=== PATIENT | male | born 1955 | race Caucasian/White ===

== ENCOUNTER 2020-04-11 09:17 | Outpatient (CLI) | payer BC ==
[2020-04-11 14:35] LABS: BASOPHILS % (AUTO) 0.4 %; EOSINOPHILS # (AUTO) 0.1 10^3/uL (0.0-0.7); EOSINOPHILS % (AUTO) 1.1 %; HGB - HEMOGLOBIN 14.6 g/dL (14.0-18.0); LYMPHOCYTES # (AUTO) 2.1 10^3/uL (1.5-3.5); LYMPHOCYTES % (AUTO) 37.5 %; MEAN CORPUSCULAR HEMOGLOBIN 31.9 pg (27.0-31.0); MEAN CORPUSCULAR HGB CONC 33.4 g/dL (32.0-36.0); MEAN CORPUSCULAR VOLUME 95.6 fL (80.0-94.0); MEAN PLATELET VOLUME 9.8 fL (7.4-11.4); MONOCYTES # (AUTO) 0.4 10^3/uL (0.0-1.0); MONOCYTES % (AUTO) 7.4 %; NEUTROPHILS % (AUTO) 53.2 %; PLT - PLATELET COUNT 268 10^3/uL (130-450); RED BLOOD COUNT 4.57 10^6/uL (4.70-6.10); RED CELL DISTRIBUTION WIDTH 12.6 % (12.0-15.0); WHITE BLOOD COUNT 5.7 x10^3/uL (4.8-10.8)
[2020-04-11 14:55] LABS: ALBUMIN 4.2 g/dL (3.2-5.5); ALBUMIN/GLOBULIN RATIO 1.4 (1.0-2.2); ALKALINE PHOSPHATASE 43 IU/L (42-121); ALT ALANINE AMINOTRANSFERASE 13 IU/L (10-60); AST ASPARTATE AMINOTRANSFERASE 16 IU/L (10-42); BUN - BLOOD UREA NITROGEN 16 mg/dL (6-20); CALCIUM 9.1 mg/dL (8.5-10.3); CARBON DIOXIDE - CO2 26 mmol/L (21-32); CHLORIDE 106 mmol/L (101-111); CHOL/HDL RATIO 5.8 (<5.0); CHOLESTEROL 222 mg/dL; CREATININE 0.9 mg/dL (0.6-1.2); GLUCOSE 104 mg/dL (70-100); HDL CHOLESTEROL 38 mg/dL; LDL CHOLESTEROL,CALCULATED 147 mg/dL; LDL/HDL RATIO 3.9 (<3.6); SODIUM 142 mmol/L (135-145); TOTAL PROTEIN 7.2 g/dL (6.7-8.2); VLDL CHOLESTEROL 37 mg/dL
== END 2020-04-11 09:18 | disposition home or self-care (01) ==
LOC: LAB.S 09:17
PROVIDERS: ATTEND Registered Nurse
DX: Z71.89 Other specified counseling (principal); K21.9 Gastro-esophageal reflux disease without esophagitis; I10 Essential (primary) hypertension
CPT/HCPCS: 36415; 80053; 80061; 83721; 84153; 84443; 85025

== ENCOUNTER 2022-03-04 07:03 | Outpatient (CLI) | payer MEDICARE ==
--- NOTE | 2022-03-04 16:16 | Ultrasound Report ---
PROCEDURE: Carotid Doppler Complete INDICATIONS: RETINAL ARTERY BRANCH OCCLUSION TECHNIQUE: Color and pulse Doppler interrogation was performed of both carotid systems, with image documentation and velocity measurements. COMPARISON: None. FINDINGS: Right side: Brachial blood pressure: 145/76 mm Hg. Common carotid artery peak systolic velocity: 83 cm/sec. Internal carotid artery peak systolic velocity: 77 cm/sec. Internal carotid artery end diastolic velocity: 23 cm/sec. External carotid artery peak systolic velocity: 98 cm/sec. ICA/CCA peak systolic ratio: 0.9 . Connor scale imaging description: Mild plaque at the bifurcation Percent internal carotid artery stenosis: Less than 50% . Vertebral artery: Flow direction is antegrade. Left side: Brachial blood pressure: 139/77 mm Hg. Common carotid artery peak systolic velocity: 78 cm/sec. Internal carotid artery peak systolic velocity: 74 cm/sec. Internal carotid artery end diastolic velocity: 30 cm/sec. External carotid artery peak systolic velocity: 67 cm/sec. ICA/CCA peak systolic ratio: 1.0 . Connor scale imaging description: Mild to moderate plaque at the bifurcation Percent internal carotid artery stenosis: Less than 50% . Vertebral artery: Flow direction is antegrade. IMPRESSION: Less than 50% stenosis of the internal carotid arteries bilaterally. The estimate of stenosis included in the report of the imaging study was calculated using the NASCET method Reviewed by: Michelle Nath MD on 03/04/2022 4:15 PM PDT Approved by: Michelle Nath MD on 03/04/2022 4:15 PM PDT Station ID: [id number]
== END 2022-03-04 07:04 | disposition home or self-care (01) ==
LOC: DI 07:03
PROVIDERS: ATTEND Internal Medicine
DX: I65.23 Occlusion and stenosis of bilateral carotid arteries (principal); I51.9 Heart disease, unspecified; H34.231 Retinal artery branch occlusion, right eye; I51.7 Cardiomegaly
CPT/HCPCS: 93306; 93880

== ENCOUNTER → 2022-04-07 | Outpatient (CLI) | payer MEDICARE | LOC: MAC.MOP 10:30 | PROVIDERS: ATTEND Internal Medicine | DX: H34.231 Retinal artery branch occlusion, right eye (principal); I48.91 Unspecified atrial fibrillation; I49.1 Atrial premature depolarization; I49.3 Ventricular premature depolarization | CPT/HCPCS: 93248 ==

== ENCOUNTER 2022-10-23 10:59 | Outpatient (CLI) | payer MEDICARE ==
--- NOTE | 2022-10-23 18:30 | XRAY Report ---
PROCEDURE: Hips 2V BILAT INDICATIONS: LEFT HIP PAIN TECHNIQUE: 2 views of both hips were acquired. COMPARISON: None. FINDINGS: Bones: On the right, there is a total hip prosthesis in good position. No evidence of fracture or fa ilure. Pelvic ring is intact. On the left, there is a distended joint space narrowing with marginal o steophytes. Femoral head has an appropriate contour. Soft tissues: No suspicious soft tissue calcifications or masses. IMPRESSION: Moderate left hip osteoarthritis Total right hip arthroplasty in good position Reviewed by: Campbell Reyes MD on 10/23/2022 5:29 PM AKJEFFERY Approved by: Campbell Reyes MD on 10/23/2022 5:29 PM AKJEFFERY Station ID: [id number]
== END 2022-10-23 11:00 | disposition home or self-care (01) ==
LOC: DI.S 10:59
PROVIDERS: ATTEND Registered Nurse
DX: M16.12 Unilateral primary osteoarthritis, left hip (principal); Z96.641 Presence of right artificial hip joint

== ENCOUNTER 2022-11-06 08:00 | Outpatient (CLI) | payer MEDICARE ==
--- NOTE | 2022-11-06 14:12 | XRAY Report ---
PROCEDURE: Knee 4 View LT INDICATIONS: LEFT KNEE PAIN TECHNIQUE: 4 views of the left knee and one view of the right knee were acquired. COMPARISON: None. FINDINGS: Bones: No acute fractures or dislocations. No suspicious bony lesions. Severe narrowing of the le ft medial femorotibial compartment joint space is seen with subchondral sclerosis and marginal osteop hyte formation. Mild narrowing of the lateral and anterior compartment joint spaces is seen with smal l marginal osteophytes. Included right knee demonstrates moderate to severe joint space narrowing at the medial femorotibial compartment. Soft tissues: No knee joint effusion. No suspicious soft tissue calcifications or masses. IMPRESSION: Tricompartmental left knee osteoarthrosis is most notable and severe at the medial femorotibial amee rtment. Reviewed by: Sharan Calle MD on 11/06/2022 2:10 PM PDT Approved by: Sharan Calle MD on 11/06/2022 2:10 PM PDT Station ID: [id number]
== END 2022-11-06 23:59 | disposition home or self-care (01) ==
LOC: DI.WOS 08:00
PROVIDERS: ATTEND Orthopaedic Surgery
DX: M17.11 Unilateral primary osteoarthritis, right knee (principal)

== ENCOUNTER 2022-12-02 08:42 | Outpatient (CLI) | payer MEDICARE ==
[2022-12-02 15:10] LABS: BASOPHILS % (AUTO) 0.3 %; EOSINOPHILS # (AUTO) 0.2 10^3/uL (0.0-0.7); EOSINOPHILS % (AUTO) 2.5 %; HGB - HEMOGLOBIN 13.8 g/dL (14.0-18.0); LYMPHOCYTES # (AUTO) 2.4 10^3/uL (1.5-3.5); LYMPHOCYTES % (AUTO) 35.7 %; MEAN CORPUSCULAR HEMOGLOBIN 31.4 pg (27.0-31.0); MEAN CORPUSCULAR HGB CONC 32.9 g/dL (32.0-36.0); MEAN CORPUSCULAR VOLUME 95.5 fL (80.0-94.0); MEAN PLATELET VOLUME 10.4 fL (7.4-11.4); MONOCYTES # (AUTO) 0.5 10^3/uL (0.0-1.0); NEUTROPHILS # (AUTO) 3.6 10^3/uL (1.5-6.6); NEUTROPHILS % (AUTO) 53.2 %; PLT - PLATELET COUNT 250 10^3/uL (130-450); RED CELL DISTRIBUTION WIDTH 12.4 % (12.0-15.0); WHITE BLOOD COUNT 6.8 x10^3/uL (4.8-10.8)
[2022-12-02 15:33] LABS: ALBUMIN 3.9 g/dL (3.2-5.5); ALBUMIN/GLOBULIN RATIO 1.4 (1.0-2.2); ALKALINE PHOSPHATASE 37 IU/L (42-121); ALT ALANINE AMINOTRANSFERASE 18 IU/L (10-60); AST ASPARTATE AMINOTRANSFERASE 19 IU/L (10-42); BILIRUBIN,TOTAL 0.8 mg/dL (0.2-1.0); BUN - BLOOD UREA NITROGEN 17 mg/dL (6-20); CALCIUM 8.7 mg/dL (8.5-10.3); CARBON DIOXIDE - CO2 27 mmol/L (21-32); CHLORIDE 109 mmol/L (101-111); CHOL/HDL RATIO 3.4 (<5.0); CHOLESTEROL 124 mg/dL; CREATININE 0.9 mg/dL (0.6-1.2); GFR - MDRD 84 (>89); GLUCOSE 105 mg/dL (70-100); HDL CHOLESTEROL 37 mg/dL; LDL CHOLESTEROL,CALCULATED 61 mg/dL; LDL/HDL RATIO 1.6 (<3.6); SODIUM 141 mmol/L (135-145); TOTAL PROTEIN 6.6 g/dL (6.7-8.2); TRIGLYCERIDES 131 mg/dL; VLDL CHOLESTEROL 26 mg/dL
== END 2022-12-02 08:43 | disposition home or self-care (01) ==
LOC: LAB.S 08:42
PROVIDERS: ATTEND Registered Nurse
DX: E78.5 Hyperlipidemia, unspecified (principal); Z79.899 Other long term (current) drug therapy; Z12.5 Encounter for screening for malignant neoplasm of prostate
CPT/HCPCS: 36415; 80053; 80061; 85025; G0103; 83721; 84153

== ENCOUNTER 2022-12-31 06:24 | Day surgery (SDC) | payer MEDICARE ==
[~2022-12-31 06:24] MED LIST: ACETAMINOPHEN 500 MG TABLET PO ONE; CELECOXIB 100 MG CAPSULE PO ONE; ceFAZolin 2 GM VIAL ONE
--- NOTE | 2022-12-31 06:40 | ANESTHESIA ---
Pre-Anesthesia VS, & Labs - Diagnosis L hip OA - Procedure L LILO Height: 6 ft Weight (kg): 106 kg Body Mass Index: 31.6 BMI Classification: Obese - NPO >8 hours - Lab Results Lab results reviewed: Yes Home Medications and Allergies Home Medications: Ambulatory Orders Aspirin [Aspirin EC] 81 mg PO DAILY 12/22/22 Atorvastatin Calcium [Lipitor] 80 mg PO QPM 12/22/22 Metoprolol Succinate [Toprol Xl] 50 mg PO DAILY 12/22/22 Pantoprazole [Protonix] 40 mg PO DAILY 12/22/22 Aspirin [Aspirin EC] 81 mg PO DAILY 12/22/22 Atorvastatin Calcium [Lipitor] 80 mg PO QPM 12/22/22 Metoprolol Succinate [Toprol Xl] 50 mg PO DAILY 12/22/22 Pantoprazole [Protonix] 40 mg PO DAILY 12/22/22 Allergies/Adverse Reactions: Allergies Allergy/AdvReac Type Severity Reaction Status Date / Time No Known Drug Allergies Allergy Verified 12/22/22 13:02 Anes History & Medical History - Anesthetic History Anesthesia Complications: reports: No previous complications Family history of Anesthesia Complications: Denies Family history of Malignant Hyperthermia: Denies - Medical History Cardiovascular: reports: Hypertension, High cholesterol Pulmonary: reports: None Gastrointestinal: reports: GERD Urinary: reports: None Musculoskeletal: reports: Osteoarthritis Endocrine/Autoimmune: reports: None Skin: reports: None History of Cancer?: No - Surgical History Orthopedic: reports: Hip replacement, Other Exam General: Alert, Oriented x3, Cooperative Dental: WNL Mouth Openin Fingerbreadth Neck Mobility: Normal Mallampati classification: II Thyromental Distance: 4-6 cm Respiratory: Lungs clear, Normal breath sounds, No respiratory distress Cardiovascular: Regular rate Neurological: Normal speech Mental/Cognitive Status: Alert/Oriented X3, Normal for patient Cognitive Status: Within normal limits Plan Anesthesia Type: Spinal Consent for Procedure(s) Verified and Reviewed: Yes Code Status: Attempt Resuscitation ASA classification: 2-Mild systemic disease Is this case an emergency?: No
[2022-12-31] MEDS ORDERED: LACTATED RINGERS 1,000 ML IV ONE ×2 (06:52→12:08)
[2022-12-31] MEDS ORDERED: PROPOFOL 500 MG/50 ML 500 MG/50 ML VIAL ONE ×2 (07:03→08:50)
[2022-12-31] MEDS ORDERED: MIDAZOLAM 2 MG/2 ML VIAL ONE (07:07)
[2022-12-31] MEDS ORDERED: fentaNYL 100 MCG/2 ML VIAL ONE ×3 (07:07→11:53)
[2022-12-31] MEDS ORDERED: BUPIVACAINE 0.5% PF 10 ML VIAL ONE (07:08)
[2022-12-31] MEDS ORDERED: VANCOMYCIN 1 GM VIAL ONE (07:18)
[2022-12-31] MEDS ORDERED: BUPIVACAINE 0.25% PF 30 ML VIAL ONE (07:18)
[2022-12-31] MEDS ORDERED: MORPHINE 2 MG/ML CARPUJECT IVP PRN (07:20)
[2022-12-31] MEDS ORDERED: ePHEDrine 50 MG/ML VIAL IVP PRN (07:20)
[2022-12-31] MEDS ORDERED: ATROPINE ABBOJECT 1 MG/10 ML SYRINGE IVP PRN (07:20)
[2022-12-31] MEDS ORDERED: ONDANSETRON 4 MG/2 ML VIAL IVP PRN ×2 (07:20→11:27)
[2022-12-31] MEDS ORDERED: NALOXONE 0.4 MG/ML VIAL IVP PRN (07:20)
[2022-12-31] MEDS ORDERED: fentaNYL 100 MCG/2 ML VIAL IVP PRN (07:20)
[2022-12-31] MEDS ORDERED: METOCLOPRAMIDE 10 MG/2 ML VIAL IVP PRN (07:20)
[2022-12-31] MEDS ORDERED: HYDROmorphone 0.5 MG/0.5 ML SYRINGE IVP PRN (07:20)
[2022-12-31] MEDS ORDERED: LACTATED RINGERS 1,000 ML IV SCH (08:00)
[2022-12-31] MEDS ORDERED: TRANEXAMIC ACID 1,000 MG/10 ML VIAL ONE ×2 (08:02→09:35)
[2022-12-31] MEDS ORDERED: DEXAMETHASONE 10 MG/ML VIAL ONE (08:02)
[2022-12-31] MEDS ORDERED: PROPOFOL 200 MG/20 ML VIAL IVP ONE ×4 (08:14→10:29)
[2022-12-31] MEDS ORDERED: VANCOMYCIN 1 GM VIAL MC ONE (10:31)
[2022-12-31] MEDS ORDERED: BUPIVACAINE 0.25% PF 30 ML VIAL SUBQ ONE (10:59)
--- NOTE | 2022-12-31 11:08 | OPERATIVE REPORT ---
Operative Report - General Procedure Date: 12/31/22 Planned Procedure: Left total hip arthroplasty Pre-Op Diagnosis: Osteoarthritis left hip, history of osteoarthritis of the right hip Procedure Performed: Left total hip arthroplasty: [employer] #6 anthology femoral component, 58 mm R3 acetabular press-fit cup,35 mm acetabular screw neutral polyethylene acetabular liner, 36 mm Oxinium +0 femoral head Post Op Diagnosis: Osteoarthritis left hip - Procedure Note Primary Surgeon: Hiram Munoz MD Secondary Surgeon: Ashely HA Anesthesia Provider: Mahesh Kenyon CRNA Anesthesia Technique: Spinal Estimated Blood Loss (mL): 250 Indications: This is a 67-year-old gentleman with a history of bilateral hip osteoarthritis. He has had a previous right total hip replacement in about 2017 with favorable outcome. He has had progressive pain especially over the past year to the left hip. He had limited and painful motion to the left hip. His x-rays showed marked narrowing of the hip joint, subchondral sclerosis and osteophyte consistent with osteoarthritis of the left hip. Findings: There was articular cartilage loss that was nearly complete on both sides of the joint especially in the weightbearing dome where there is some eburnation of bone. Complications: None - Other Other Information/Narrative: After satisfactory spinal anesthesia had been achieved, the patient was placed in a lateral decubitus position with the left hip facing superiorly. He was secured in the lateral decubitus position using a pegboard with 2 post securing the torso and 2 posts securing the pelvis. The left hip and right lower extremity were prepped and draped in a sterile manner in the usual fashion. A timeout procedure was performed by the entire operating room team and all were in agreement. A longitudinal incision was made about the lateral right hip beginning at the vastus lateralis ridge of the proximal femur and extending it proximally approximately 3 fingerbreadths above the trochanter. The subcutaneous tissue and fascia domenic were split in line with the incision. The anterior one third of the gluteus medius was incised at the myotendinous junction. The gluteus medius was retracted medially. The hip capsule was exposed and was split in a T-shaped fashion. Part of the anterior hip capsule was excised. The femoral head was dislocated with flexion, adduction and external rotation. An osteotomy was done to the femoral neck using a osteotomy guide. Retractors were placed behind the femoral neck to protect the soft tissues from the oscillating saw. The proximal femur was retracted. 2 acetabular retractors were placed one anteriorly directly against bone to reduce any soft tissue impingement to femoral nerve. The second retractor was placed more posteriorly directly against bone and preventing any impingement against sciatic nerve. The acetabulum was prepared with a large curette. Medialization of the acetabulum was performed with a small acetabular reamer and then widening was done up to a 57 mm reamer the final reamers were placed in approximately 20 degrees anteversion and 40 degrees of abduction. A trial acetabular component was inserted, 53 mm and this fit well. A permanent 54 mm R3 acetabular 3-hole component was then impacted in 40 degrees of abduction and approximately 20 degrees of anteversion. This had good fixation to push pull and rotation. A single 35 mm superior acetabular screw was inserted. The stability of the acetabular cup was very good. A trial acetabular liner was inserted into the cup. The femoral canal was opened with a box osteotome, starting reamer and then a short broach. Broaching was carried out to a #6. Calcar reaming was performed. Good fit and stability to the #6 stem was achieved. Trial reduction was performed. Hip motion was very good and the hip was stable to dislocation maneuvers. The trial components were removed. A permanent acetabular liner was impacted into the acetabular cup. The #6 femoral stem was impacted and fully seated. There was good stability to push pull and rotation. A 36 mm +0 head was impacted on the trunnion. The hip was reduced, had good leg length tension and good stability with dislocation maneuvers. 3-minute lavage with dilute Betadine was performed. The hip abductors were repaired at the myotendinous junction with #1 stratofix. The fascia domenic was closed with #1 Stratofix. The subcutaneous tissue was closed with 2-0 stratofix. The skin was closed with a 3-0 Monocryl subcuticular closure and Dermabond. He tolerated the procedure well. A physician licensed physical therapist assistant was utilized during the procedure to provide retraction and protection of neurovascular structures as well as to facilitate dislocation and reduction of the hip joint.The patient received 2 g of Ancef intravenously prior to the incision and a total of 2 g of tranexamic acid
[2022-12-31] MEDS ORDERED: DOCUSATE SODIUM 100 MG CAPSULE PO PRN (11:27)
[2022-12-31] MEDS ORDERED: fentaNYL 250 MCG/5 ML VIAL IVP PRN (11:27)
[2022-12-31] MEDS ORDERED: SODIUM CHLORIDE FLUSH 0.9% 10 ML SYRINGE IVP PRN (11:27)
[2022-12-31] MEDS ORDERED: traMADol 50 MG TABLET PO PRN (11:27)
[2022-12-31] MEDS ORDERED: oxyCODONE 5 MG TABLET PO PRN (11:27)
[2022-12-31] MEDS ORDERED: LACTATED RINGERS 300 ML IV ONE (11:31)
[2022-12-31] MEDS ORDERED: HYDROmorphone 0.5 MG/0.5 ML SYRINGE ONE (11:44)
[2022-12-31] MEDS ORDERED: fentaNYL 100 MCG/2 ML VIAL IVP ONE (11:50)
[2022-12-31] MEDS ORDERED: METOCLOPRAMIDE 10 MG/2 ML VIAL ONE (11:54)
[2022-12-31] MEDS ORDERED: NS W/20 MEQ KCL 1,000 ML IV SCH (12:00)
[2022-12-31] MEDS ORDERED: ceFAZolin 2 GM in SODIUM CHLORIDE 0.9% MINIBAG 100 ML IV SCH ×2 (12:00→16:30)
--- NOTE | 2022-12-31 12:31 | ANESTHESIA POST OP EVALUATION ---
Anesthesia Post Eval - Post Anesthesia Eval Vitals: Last Vital Signs Temp 36.0 C L 12/31/22 12:06 Pulse 71 12/31/22 12:06 Resp 16 12/31/22 12:06 BP 110/68 12/31/22 12:06 Pulse Ox 97 12/31/22 12:06 O2 Flow Rate CV Function Including HR & BP: Stable Pain Control: Satisfactory Nausea & Vomiting: Negative Mental Status: Baseline Respiratory Status: Airway Patent Hydration Status: Satisfactory Anesthesia Complications: None
[2022-12-31] MEDS: ACETAMINOPHEN 500 MG TABLET PO SCH ×2 (13:07→18:32)
[2022-12-31] MEDS: traMADol 50 MG TABLET PO SCH ×2 (13:07→18:32)
[2022-12-31] MEDS ORDERED: SODIUM CHLORIDE FLUSH 0.9% 10 ML SYRINGE IVP SCH (17:00)
[2022-12-31 18:39] VITALS: BP 134/81
--- NOTE | 2022-12-31 20:10 | XRAY Report ---
PROCEDURE: Pelvis 1 View INDICATIONS: post op imaging TECHNIQUE: 2 view(s) of the pelvis acquired. COMPARISON: 10/23/2022. FINDINGS: Bones: Patient is status post left total hip arthroplasty. Alignment of left hip is anatomic. No frac tures or dislocations. No suspicious bony lesions. Soft tissues: Expected postsurgical changes are seen. IMPRESSION: Postoperative changes from left total hip arthroplasty with anatomic left hip alignment. Reviewed by: Alfonso Keyes MD on 12/31/2022 8:08 PM PDT Approved by: Alfonso Keyes MD on 12/31/2022 8:08 PM PDT Station ID: [id number]
[2022-12-31] MEDS ORDERED: CELECOXIB 100 MG CAPSULE PO SCH (21:00)
[2022-12-31] MEDS ORDERED: ethyl alcohoL 62% SWAB AMPULE NAS SCH (21:00)
[2022-12-31] MEDS ORDERED: ASPIRIN EC 81 MG TABLET PO SCH (21:00)
[2023-01-01] MEDS ORDERED: dexAMETHasone 4 MG TABLET PO SCH (07:00)
== END 2022-12-31 19:00 | disposition home or self-care (01) ==
LOC: SDS 06:24 → MS2 12:33 → SDS 19:00
PROVIDERS: ATTEND Orthopaedic Surgery
DX: M16.12 Unilateral primary osteoarthritis, left hip (principal); Z96.641 Presence of right artificial hip joint; E66.9 Obesity, unspecified; Z68.31 Body mass index [BMI] 31.0-31.9, adult; I10 Essential (primary) hypertension
CPT/HCPCS: 27130; 72170; 97162; 97166; 97530; A9270; J1170; J2765; J3370; J7120

== ENCOUNTER 2023-01-11 08:14 | Emergency (ER) | payer MEDICARE ==
--- NOTE | 2023-01-11 08:56 | ED Physician Documentation ---
PD HPI LOWER EXT INJURY - Stated complaint Stated Complaint: LEFT HIP SWOLLEN, LT LEG PX - Chief complaint Chief Complaint: General - History obtained from History obtained from: Patient, Family - Additional information Additional information: Patient is a 67-year-old male presenting for evaluation of left hip incision. Patient had a total hip replacement on December [address] Munoz. He has been recovering well at home. He has been taking aspirin for DVT prophylaxis. He reports yesterday he turned in a certain direction and reported pain to the left hip area and then noticed some fluid draining from his incision. It saturated the dressing that had been in place. They replaced it with a new dressing and spoke to Dr. Muñoz who was on-call for orthopedic surgery. They were instructed to continue to keep an eye on it and to follow-up in the clinic on Thursday as already scheduled. Overnight, patient reports having continued drainage from the incision causing his pants to get wet which concerned them. No fevers. Patient also reported that yesterday he noticed a vein is sticking out more prominently on his left foot that he has not noticed previously. He denies calf tenderness. He has had swelling to the affected leg but reports that this is getting better. He has been mobilizing more so over the past several days. Denies chest pain or shortness of air.He has been ambulatory this morning.He has also been decreasing his tramadol from every 6 hours to twice daily. Review of Systems Constitutional: denies: Fever Cardiac: denies: Chest pain / pressure Respiratory: denies: Dyspnea GI: denies: Abdominal Pain Musculoskeletal: reports: Extremity swelling (Improving) PD PAST MEDICAL HISTORY - Past Medical History Cardiovascular: Hypertension, High cholesterol Respiratory: None Endocrine/Autoimmune: None GI: GERD : None HEENT: Chronic vision loss, Other Psych: None Musculoskeletal: Osteoarthritis Derm: None - Past Surgical History Ortho: Hip replacement, Other - Present Medications Home Medications: Ambulatory Orders Medication Instructions Recorded Confirmed Aspirin [Aspirin EC] 81 mg PO DAILY 12/22/22 12/31/22 Atorvastatin Calcium [Lipitor] 80 mg PO QPM 12/22/22 12/31/22 Metoprolol Succinate [Toprol Xl] 50 mg PO DAILY 12/22/22 12/31/22 Pantoprazole [Protonix] 40 mg PO DAILY 12/22/22 12/31/22 - Allergies Allergies/Adverse Reactions: Allergies Allergy/AdvReac Type Severity Reaction Status Date / Time No Known Drug Allergies Allergy Verified 12/22/22 13:02 PD ED PE NORMAL - General General: Alert and oriented X 3, No acute distress, Well developed/nourished - HEENT HEENT: Atraumatic, Moist mucous membranes - Neck Neck: Supple, no meningeal sign - Cardiac Cardiac: RRR, Strong equal pulses - Respiratory Respiratory: No respiratory distress, Clear bilaterally - Derm Derm: Warm and dry - Extremities Extremities: No calf tenderness / cord, Other (Well-healing incision to left hip, small amount of serous fluid from distal portion of incision with no signs of large dehiscence, no surrounding erythema. or warmth swelling to left lower extremity which patient states is improving,) Results - Vitals Vitals: Vital Signs - 24 hr 01/11/23 01/11/23 08:20 09:19 Temperature 36.7 C Heart Rate 81 66 Respiratory 18 18 Rate Blood Pressure 158/81 H 131/89 H O2 Saturation 98 99 Oxygen O2 Source Room air PD Medical Decision Making - ED course Complexity details: re-evaluated patient ED course: Patient is a 67-year-old male presenting for evaluation of incision from recent left total hip. He is afebrile. He is ambulating. Incision is evaluated and there is no signs of dehiscence. There is a small amount of fluid from the distal portion of the wound that appears to be serous. No signs of infection at this time. He does have swelling to the affected extremity which is expected postoperatively and this has been improving. No calf tenderness. Distal pulses intact. Discussed the case with Dr. Munoz who recommends dressing and close follow-up tomorrow. Reviewed these instructions with patient and family at bedside who are in agreement and understand need for close follow-up. They are advised on concerning symptoms to return for. 0847 - D/W Dr. Munoz. He has reviewed image of the incision. He recommends placing a dressing of gauze, ABD pad and an Yamil wrap to the incision. He does not believe it needs antibiotics at this time. He will see the patient tomorrow in clinic. Departure - Departure Disposition: 01 Home, Self Care Clinical Impression: Problem involving surgical incision Condition: Stable Follow-Up: Hiram Munoz MD [Provider Admit Priv/Credential] - Tomorrow (Call in the morning to see when they are able to fit you in on 01/12/23) Comments: You are having Leakage of fluid from a small opening in your incision. At this time there does not appear to be an infection. I have spoken to Dr. Munoz and we have placed a dressing with an Yamil wrap to the area. He would like to see you tomorrow in his clinic. Please call in the morning to see what time they would like you there. Continue with your pain medication and aspirin. Return to the emergency department if you develop worsening symptoms such as a fever. Forms: PCP List Discharge Date/Time: 01/11/23 09:26
[2023-01-11 09:25] VITALS: BP 131/89; O2SAT 99
== END 2023-01-11 09:26 | disposition home or self-care (01) ==
LOC: ED 08:14
DX: L76.82 Other postprocedural complications of skin and subcutaneous tissue (principal); I10 Essential (primary) hypertension; E78.00 Pure hypercholesterolemia, unspecified; Z79.82 Long term (current) use of aspirin; Z79.899 Other long term (current) drug therapy
CPT/HCPCS: 99282; 99283

== ENCOUNTER 2023-01-12 11:07 | Outpatient (CLI) | payer MEDICARE ==
[2023-01-12 11:21] LABS: BASOPHILS % (AUTO) 0.4 %; EOSINOPHILS # (AUTO) 0.2 10^3/uL (0.0-0.7); HCT - HEMATOCRIT 34.1 % (42.0-52.0); HGB - HEMOGLOBIN 11.1 g/dL (14.0-18.0); LYMPHOCYTES % (AUTO) 25.5 %; MEAN CORPUSCULAR HEMOGLOBIN 31.7 pg (27.0-31.0); MEAN CORPUSCULAR HGB CONC 32.6 g/dL (32.0-36.0); MEAN CORPUSCULAR VOLUME 97.4 fL (80.0-94.0); MEAN PLATELET VOLUME 8.9 fL (7.4-11.4); MONOCYTES # (AUTO) 0.5 10^3/uL (0.0-1.0); MONOCYTES % (AUTO) 5.8 %; NEUTROPHILS # (AUTO) 5.2 10^3/uL (1.5-6.6); NEUTROPHILS % (AUTO) 65.7 %; PLT - PLATELET COUNT 364 10^3/uL (130-450); RED CELL DISTRIBUTION WIDTH 12.7 % (12.0-15.0)
== END 2023-01-12 11:08 | disposition home or self-care (01) ==
LOC: LAB 11:07
PROVIDERS: ATTEND Orthopaedic Surgery
DX: Z96.643 Presence of artificial hip joint, bilateral (principal)
CPT/HCPCS: 36415; 85025; 85651; 86140

== ENCOUNTER 2023-01-15 12:05 | Outpatient (CLI) | payer MEDICARE ==
[2023-01-15 12:32] LABS: BASOPHILS % (AUTO) 0.3 %; EOSINOPHILS # (AUTO) 0.2 10^3/uL (0.0-0.7); EOSINOPHILS % (AUTO) 2.4 %; HCT - HEMATOCRIT 35.3 % (42.0-52.0); HGB - HEMOGLOBIN 11.4 g/dL (14.0-18.0); LYMPHOCYTES # (AUTO) 1.9 10^3/uL (1.5-3.5); MEAN CORPUSCULAR HEMOGLOBIN 31.6 pg (27.0-31.0); MEAN CORPUSCULAR HGB CONC 32.3 g/dL (32.0-36.0); MEAN CORPUSCULAR VOLUME 97.8 fL (80.0-94.0); MONOCYTES # (AUTO) 0.5 10^3/uL (0.0-1.0); MONOCYTES % (AUTO) 6.2 %; NEUTROPHILS # (AUTO) 4.8 10^3/uL (1.5-6.6); NEUTROPHILS % (AUTO) 64.4 %; PLT - PLATELET COUNT 390 10^3/uL (130-450); RED BLOOD COUNT 3.61 10^6/uL (4.70-6.10); RED CELL DISTRIBUTION WIDTH 12.9 % (12.0-15.0); WHITE BLOOD COUNT 7.4 x10^3/uL (4.8-10.8)
== END 2023-01-15 12:06 | disposition home or self-care (01) ==
LOC: LAB 12:05
PROVIDERS: ATTEND Orthopaedic Surgery
DX: Z96.643 Presence of artificial hip joint, bilateral (principal)
CPT/HCPCS: 36415; 85025; 85651; 86140

== ENCOUNTER 2023-01-16 07:57 | Day surgery (SDC) | payer MEDICARE ==
[2023-01-16] MEDS ORDERED: ACETAMINOPHEN 500 MG TABLET PO ONE (08:00)
[2023-01-16] MEDS ORDERED: CELECOXIB 100 MG CAPSULE PO ONE (08:01)
[2023-01-16] MEDS ORDERED: ceFAZolin 2 GM VIAL ONE (08:01)
[2023-01-16] MEDS ORDERED: BUPIVACAINE 0.25% PF 30 ML VIAL ONE (08:16)
[2023-01-16] MEDS ORDERED: VANCOMYCIN 1 GM VIAL ONE (08:16)
[2023-01-16] MEDS ORDERED: ONDANSETRON 4 MG/2 ML VIAL IVP PRN (08:27)
[2023-01-16] MEDS ORDERED: NALOXONE 0.4 MG/ML VIAL IVP PRN (08:27)
[2023-01-16] MEDS ORDERED: ATROPINE ABBOJECT 1 MG/10 ML SYRINGE IVP PRN (08:27)
[2023-01-16] MEDS ORDERED: fentaNYL 100 MCG/2 ML VIAL IVP PRN (08:27)
[2023-01-16] MEDS ORDERED: MORPHINE 2 MG/ML CARPUJECT IVP PRN (08:27)
[2023-01-16] MEDS ORDERED: ePHEDrine 50 MG/ML VIAL IVP PRN (08:27)
[2023-01-16] MEDS ORDERED: HYDROmorphone 0.5 MG/0.5 ML SYRINGE IVP PRN (08:27)
[2023-01-16] MEDS ORDERED: METOCLOPRAMIDE 10 MG/2 ML VIAL IVP PRN (08:27)
--- NOTE | 2023-01-16 08:27 | ANESTHESIA ---
Pre-Anesthesia VS, & Labs - Diagnosis drainage from left hip - Procedure Irrigation and drainage left hip Height: 6 ft Weight (kg): 107 kg Body Mass Index: 32.0 BMI Classification: Obese - NPO >8 hours Home Medications and Allergies Aspirin [Aspirin EC] 81 mg PO DAILY 12/22/22 Atorvastatin Calcium [Lipitor] 80 mg PO QPM 12/22/22 Metoprolol Succinate [Toprol Xl] 50 mg PO DAILY 12/22/22 Pantoprazole [Protonix] 40 mg PO DAILY 12/22/22 Allergies/Adverse Reactions: Allergies Allergy/AdvReac Type Severity Reaction Status Date / Time No Known Drug Allergies Allergy Verified 12/22/22 13:02 Anes History & Medical History - Anesthetic History Anesthesia Complications: reports: No previous complications - Medical History Cardiovascular: reports: Hypertension, High cholesterol Pulmonary: reports: None Gastrointestinal: reports: GERD Urinary: reports: None Musculoskeletal: reports: Osteoarthritis Endocrine/Autoimmune: reports: None Skin: reports: None - Surgical History Orthopedic: reports: Hip replacement, Other Exam General: Alert, Oriented x3 Dental: WNL Mouth Opening: Greater than 4 Fingerbreadths Neck Mobility: Normal Mallampati classification: II Thyromental Distance: greater than 6 cm Respiratory: Lungs clear Cardiovascular: Regular rate, Normal S1, Normal S2 Plan Anesthesia Type: General Consent for Procedure(s) Verified and Reviewed: Yes Code Status: Attempt Resuscitation ASA classification: 2-Mild systemic disease Is this case an emergency?: No
[2023-01-16] MEDS ORDERED: LACTATED RINGERS 1,000 ML IV ONE ×2 (08:34→10:05)
[2023-01-16] MEDS ORDERED: fentaNYL 100 MCG/2 ML VIAL ONE (08:34)
[2023-01-16] MEDS ORDERED: LIDOCAINE-PF 2% 10 ML AMP SUBQ ONE (08:34)
[2023-01-16] MEDS ORDERED: MIDAZOLAM 2 MG/2 ML VIAL ONE (08:34)
[2023-01-16] MEDS ORDERED: PROPOFOL 200 MG/20 ML VIAL IVP ONE (08:35)
[2023-01-16] MEDS ORDERED: ROCURONIUM 50 MG/5 ML VIAL ONE (08:37)
[2023-01-16] MEDS ORDERED: LACTATED RINGERS 1,000 ML IV SCH (09:00)
[2023-01-16] MEDS ORDERED: ONDANSETRON 4 MG/2 ML VIAL ONE (09:07)
[2023-01-16] MEDS ORDERED: DEXAMETHASONE 4 MG/ML VIAL ONE (09:07)
[2023-01-16] MEDS ORDERED: BUPIVACAINE 0.25% PF 30 ML VIAL SUBQ ONE (09:20)
[2023-01-16] MEDS ORDERED: VANCOMYCIN 1 GM VIAL MC ONE (09:25)
[2023-01-16] MEDS ORDERED: TRANEXAMIC ACID 1,000 MG/10 ML VIAL ONE (09:28)
[2023-01-16] MEDS ORDERED: SUGAMMADEX 200 MG/2 ML VIAL IVP ONE (09:33)
[2023-01-16] MEDS ORDERED: oxyCODONE 5 MG TABLET PO PRN (10:13)
[2023-01-16] MEDS ORDERED: CELECOXIB 100 MG CAPSULE PO PRN (10:13)
[2023-01-16] MEDS ORDERED: ACETAMINOPHEN 500 MG TABLET PO PRN (10:13)
[2023-01-16] MEDS ORDERED: ONDANSETRON ODT 4 MG TABLET TL PRN (10:13)
--- NOTE | 2023-01-16 10:27 | OPERATIVE REPORT ---
Operative Report - General Procedure Date: 01/16/23 Planned Procedure: Irrigation debridement left hip Pre-Op Diagnosis: Drainage left hip incision, probable hematoma Procedure Performed: Incision and drainage hematoma superficial left hip incision Post Op Diagnosis: Same as preoperative diagnosis - Procedure Note Primary Surgeon: Hiram Munoz MD Secondary Surgeon: Ashely Lucero PAC Anesthesia Provider: Mhaesh Kenyon CRNA Anesthesia Technique: General mask, Local Estimated Blood Loss (mL): 10 Indications: This is a 67-year-old gentleman who underwent a left total hip replacement here at [facility] approximately 2 weeks and a couple of days. He has had drainage over the past 5 or 6 days from the distal and of the left hip incision. The drainage is yellowish and clear, blood-tinged consistent with a serosanguineous type of drainage. His pain is been absent about left hip. He is able to ambulate. He has no history of fever or chills. The incision is nontender, no fluctuance but there is some swelling about the hip incision. He can move his hip well without pain. He is lab has been reviewed as well. He had lab studies performed twice prior to today: The most recent studies show a white blood cell count of 7400, C-reactive protein of 0.7 and erythrocyte sedimentation rate of 22. There is no history of antibiotics given prior to today. Findings: The left hip incision is completely intact. The fascia domenic was intact. There was a subcutaneous or superficial collection of old blood that had liquefied within the distal end of the incision. There is no sign of inflammation or infection. Complications: None - Other Other Information/Narrative: The patient was brought to the operating room. He is placed in a supine position and was given a general endotracheal anesthesia. He was placed in the lateral decubitus position with the left hip facing superiorly and secured in this position with the pegboard and holders about the pelvis and chest. The left lower extremity was prepped and draped in a sterile manner in the usual fashion using alcohol, Hibiclens and chlorhexidine about the surgical site. A timeout procedure was performed by the entire operating room team. The operative team was prepared for revision of hip joint with modular exchange and antibiotic beads. The left hip incision was extended slightly distally and carried proximally for about 10 cm after the subcutaneous tissue had been incised there was a collection of old appearing liquefied blood that was drained. Cultures were obtained of the wound and sent to the lab for aerobic and anaerobic bacteriology. There was minimal need for any debridement but the sutures that were present were removed. The wound was irrigated with dilute hydrogen peroxide, dilute Betadine and pulsatile lavage of 3 L. 2 g of vancomycin powder was placed within the wound. Hemostasis was achieved with electrocautery as needed. The subcutaneous tissue was closed with 2-stratofix suture. The skin was closed with 4-0 Monocryl subcuticular, Dermabond to the surface of the skin incision, Mepilex dressing. The patient received 2 g of Ancef intravenously prior to the incision and 1 g of Tranxemic acid A physician catering administrative assistant was medically necessary to help with prepping and draping, positioning, protection of vital structures, assistance during the procedure including wound closure, dressing and/or splinting.
--- NOTE | 2023-01-16 10:31 | ANESTHESIA POST OP EVALUATION ---
Anesthesia Post Eval - Post Anesthesia Eval Vitals: Last Vital Signs Temp 36 C L 01/16/23 10:30 Pulse 76 01/16/23 10:30 Resp 13 01/16/23 10:30 BP 152/85 H 01/16/23 10:30 Pulse Ox 97 01/16/23 10:30 O2 Flow Rate CV Function Including HR & BP: Stable Pain Control: Satisfactory Nausea & Vomiting: Negative Mental Status: Baseline Respiratory Status: Airway Patent Hydration Status: Satisfactory Anesthesia Complications: None
[2023-01-16 10:37] VITALS: O2SAT 98
[2023-01-16] MEDS ORDERED: traMADol 50 MG TABLET PO PRN (10:58)
[2023-01-16] MEDS ORDERED: traMADol 50 MG TABLET PO ONE (11:09)
[2023-01-16 11:35] VITALS: BP 162/85
== END 2023-01-16 07:58 | disposition home or self-care (01) ==
LOC: SDS 07:57
PROVIDERS: ATTEND Orthopaedic Surgery
DX: L76.32 Postprocedural hematoma of skin and subcutaneous tissue following other procedure (principal); Y83.1 Surgical operation with implant of artificial internal device as the cause of abnormal reaction of the patient, or of later complication, without mention of misadventure at the time of the procedure; Z96.642 Presence of left artificial hip joint
CPT/HCPCS: 10140; 87070; 87205; A9270; J3370; J7120

== ENCOUNTER 2023-01-20 11:10 | Outpatient (CLI) | payer MEDICARE ==
[2023-01-20 11:33] LABS: BASOPHILS % (AUTO) 0.2 %; EOSINOPHILS # (AUTO) 0.5 10^3/uL (0.0-0.7); EOSINOPHILS % (AUTO) 6.2 %; HCT - HEMATOCRIT 32.7 % (42.0-52.0); HGB - HEMOGLOBIN 10.5 g/dL (14.0-18.0); LYMPHOCYTES # (AUTO) 1.7 10^3/uL (1.5-3.5); LYMPHOCYTES % (AUTO) 20.7 %; MEAN CORPUSCULAR HEMOGLOBIN 31.8 pg (27.0-31.0); MEAN CORPUSCULAR HGB CONC 32.1 g/dL (32.0-36.0); MEAN CORPUSCULAR VOLUME 99.1 fL (80.0-94.0); MEAN PLATELET VOLUME 9.1 fL (7.4-11.4); MONOCYTES # (AUTO) 0.4 10^3/uL (0.0-1.0); MONOCYTES % (AUTO) 5.2 %; NEUTROPHILS # (AUTO) 5.6 10^3/uL (1.5-6.6); NEUTROPHILS % (AUTO) 67.3 %; PLT - PLATELET COUNT 419 10^3/uL (130-450); RED CELL DISTRIBUTION WIDTH 12.9 % (12.0-15.0); WHITE BLOOD COUNT 8.4 x10^3/uL (4.8-10.8)
[2023-01-20 11:50] LABS: ALBUMIN 4.2 g/dL (3.2-5.5); ALBUMIN/GLOBULIN RATIO 1.6 (1.0-2.2); BILIRUBIN,TOTAL 0.6 mg/dL (0.2-1.0); CALCIUM 9.3 mg/dL (8.5-10.3); CREATININE 0.9 mg/dL (0.6-1.3); CRP - C-REACTIVE PROTEIN 1.5 mg/dL (<0.5); POTASSIUM 4.1 mmol/L (3.5-4.5); TOTAL PROTEIN 6.8 g/dL (6.4-8.9)
== END 2023-01-20 11:11 | disposition home or self-care (01) ==
LOC: LAB 11:10
PROVIDERS: ATTEND Physician Assistant Surgical
DX: Z96.643 Presence of artificial hip joint, bilateral (principal); T81.89XA Other complications of procedures, not elsewhere classified, initial encounter
CPT/HCPCS: 36415; 80053; 85025; 85651; 86140

== ENCOUNTER 2023-01-21 12:13 | Outpatient (CLI) | payer MEDICARE ==
--- NOTE | 2023-01-21 16:36 | CT Report ---
PROCEDURE: PELVIS W INDICATIONS: COMPLICATIONS FROM PROCDURE CONTRAST: 100ml omni 300 TECHNIQUE: After the administration of intravenous contrast, a CT scan of the pelvis was performed. Images were recorded and evaluated at appropriate window settings. Reformats: axial MIP of the chest, coronal an d sagittal. For radiation dose reduction, the following was used: automated exposure control, adjustm ent of mA and/or kV according to patient size. COMPARISON: Pelvic radiograph dated 12/31/2022 FINDINGS: Image quality: Diagnostic. Beam hardening artifacts from bilateral hip prosthesis is seen. Bowel and peritoneum: No bowel distension. No pathologic free fluid. The appendix is visualized and i s within normal limits. Vessels: No infrarenal aortic aneurysm. Reproductive organs: Unremarkable. Bladder: No abnormal wall thickening, accounting for underdistention. Pelvic lymph nodes: No pelvic adenopathy by size criteria. Bones: Patient is status post bilateral total hip arthroplasty. Significant beam hardening artifacts are noted from hip prosthesis. Right hip prosthesis appears intact without evidence of hardware loose bassem or failure. Increased radiolucency adjacent to inferior portion of left acetabular component is noted concerning for loosening of the hardware. There is no acute periprosthetic fracture. No suspici ous bony lesions. Degenerative disc disease in visualized lower lumbar spine is seen. Other: No significant ventral or inguinal hernia. There is hypodense area involving lateral left uppe r thigh soft tissue and measures up to 6.2 x 5.1 x 12 cm in size which may represent soft tissue kayleen real. Early infected fluid collection cannot be entirely excluded. IMPRESSION: 1. Prior bilateral total hip arthroplasty with significant beam hardening artifacts. 2. Finding is concerning of loosening involving left acetabular prosthesis as described above. No annelise dence of right hip hardware loosening. 3. No acute periprosthetic fracture. No suspicious bony lesions. 4. Likely soft tissue hematoma in left lateral thigh/hip measures 6.2 x 5.1 x 12 cm in size. Overall appearance is not consistent with abscess collection. Early infected fluid collection cannot be entir palomo excluded. Reviewed by: Alfonso Cortes MD on 01/21/2023 4:35 PM PDT Approved by: Alfonso Cortes MD on 01/21/2023 4:35 PM PDT Station ID: [id number]
[2023-01-21] MEDS ORDERED: iohexoL-300 100 ML VIAL IVP ONE (20:00)
== END 2023-01-21 12:14 | disposition home or self-care (01) ==
LOC: DI 12:13
PROVIDERS: ATTEND Physician Assistant Surgical
DX: T81.89XA Other complications of procedures, not elsewhere classified, initial encounter (principal); R93.7 Abnormal findings on diagnostic imaging of other parts of musculoskeletal system; Z96.643 Presence of artificial hip joint, bilateral
CPT/HCPCS: 72193; Q9967

== ENCOUNTER 2023-01-29 11:47 | Outpatient (CLI) | payer MEDICARE ==
[2023-01-29 12:11] LABS: BASOPHILS % (AUTO) 0.5 %; EOSINOPHILS # (AUTO) 0.4 10^3/uL (0.0-0.7); HCT - HEMATOCRIT 36.8 % (42.0-52.0); HGB - HEMOGLOBIN 12.1 g/dL (14.0-18.0); LYMPHOCYTES % (AUTO) 26.9 %; MEAN CORPUSCULAR HEMOGLOBIN 31.5 pg (27.0-31.0); MEAN CORPUSCULAR HGB CONC 32.9 g/dL (32.0-36.0); MEAN CORPUSCULAR VOLUME 95.8 fL (80.0-94.0); MONOCYTES # (AUTO) 0.6 10^3/uL (0.0-1.0); MONOCYTES % (AUTO) 7.9 %; NEUTROPHILS # (AUTO) 4.3 10^3/uL (1.5-6.6); NEUTROPHILS % (AUTO) 58.3 %; PLT - PLATELET COUNT 395 10^3/uL (130-450); RED BLOOD COUNT 3.84 10^6/uL (4.70-6.10); RED CELL DISTRIBUTION WIDTH 13.1 % (12.0-15.0); WHITE BLOOD COUNT 7.3 x10^3/uL (4.8-10.8)
[2023-01-29 12:36] LABS: INR 1.1 (0.8-1.2); PT - PROTHROMBIN TIME 12.5 secs (9.9-12.6)
[2023-01-29 12:44] LABS: PARTIAL THROMBOPLASTIN TIME 29.5 secs (24.9-33.3)
== END 2023-01-29 11:48 | disposition home or self-care (01) ==
LOC: LAB 11:47
PROVIDERS: ATTEND Orthopaedic Surgery
DX: T81.89XA Other complications of procedures, not elsewhere classified, initial encounter (principal)
CPT/HCPCS: 36415; 85025; 85610; 85651; 85730; 86140

== ENCOUNTER 2023-02-19 08:00 | Outpatient (CLI) | payer MEDICARE ==
--- NOTE | 2023-02-19 13:21 | XRAY Report ---
PROCEDURE: Hip 2 View LT INDICATIONS: LEFT TOTAL HIP TECHNIQUE: 2 views of the hip were acquired. COMPARISON: None. FINDINGS: Bones: Well-aligned left hip arthroplasty without hardware complication. Well-aligned right hip arth roplasty without hardware complication. Soft tissues: No suspicious soft tissue calcifications or masses. IMPRESSION: Bilateral hip arthroplasty, without hardware complication. Reviewed by: Elie Carranza on 02/19/2023 1:20 PM PDT Approved by: Elie Carranza on 02/19/2023 1:20 PM PDT Station ID: [id number]
== END 2023-02-19 23:59 | disposition home or self-care (01) ==
LOC: DI.WOS 08:00
PROVIDERS: ATTEND Orthopaedic Surgery
DX: M16.0 Bilateral primary osteoarthritis of hip (principal)

== ENCOUNTER 2023-02-25 08:55 | Inpatient (IN) | payer MEDICARE ==
[2023-02-25] MEDS ORDERED: ROPIVACAINE 0.5% PF 20 ML VIAL ONE ×2 (09:26→11:22)
[2023-02-25] MEDS ORDERED: SODIUM CHLORIDE 0.9% 10 ML VIAL IVP ONE (09:27)
[2023-02-25] MEDS ORDERED: LIDOCAINE-PF 2% 10 ML AMP SUBQ ONE ×2 (09:27→14:27)
[2023-02-25] MEDS ORDERED: CELECOXIB 100 MG CAPSULE PO ONE (09:28)
[2023-02-25] MEDS ORDERED: ACETAMINOPHEN 500 MG TABLET PO ONE (09:28)
[2023-02-25] MEDS ORDERED: ceFAZolin 2 GM VIAL ONE (09:29)
--- NOTE | 2023-02-25 09:29 | ANESTHESIA ---
Pre-Anesthesia VS, & Labs - Diagnosis infected left hip replacement - Procedure left hip arthroplasty, debridement of joint, antibiotic hip components, PICC line Vital Signs: Temp Pulse Resp BP Pulse Ox O2 Flow Rate 36.2 C L 82 16 141/84 H 100 02/25/23 09:13 02/25/23 09:13 02/25/23 09:13 02/25/23 09:13 02/25/23 09:13 Height: 6 ft - NPO >8 hours Home Medications and Allergies Aspirin [Aspirin EC] 81 mg PO DAILY 12/22/22 Atorvastatin Calcium [Lipitor] 80 mg PO QPM 12/22/22 Metoprolol Succinate [Toprol Xl] 50 mg PO DAILY 12/22/22 Pantoprazole [Protonix] 40 mg PO DAILY 12/22/22 Ibuprofen [Motrin] 600 mg PO DAILY 01/16/23 traMADol [Ultram] 50 mg PO DAILY 01/16/23 Allergies/Adverse Reactions: Allergies Allergy/AdvReac Type Severity Reaction Status Date / Time No Known Drug Allergies Allergy Verified 02/24/23 15:40 Anes History & Medical History - Anesthetic History Anesthesia Complications: reports: No previous complications - Medical History Cardiovascular: reports: Hypertension, High cholesterol Pulmonary: reports: None Gastrointestinal: reports: GERD Urinary: reports: None Musculoskeletal: reports: Osteoarthritis Endocrine/Autoimmune: reports: None Skin: reports: None Smoking Status: Never smoker Psychosocial: reports: Alcohol (rare) - Surgical History Orthopedic: reports: Hip replacement, Other Exam General: Alert, Oriented x3 Dental: WNL Mouth Opening: Greater than 4 Fingerbreadths Neck Mobility: Normal Mallampati classification: II Thyromental Distance: greater than 6 cm Respiratory: Lungs clear Cardiovascular: Regular rate, Normal S1, Normal S2 Plan Anesthesia Type: General Consent for Procedure(s) Verified and Reviewed: Yes Code Status: Attempt Resuscitation ASA classification: 2-Mild systemic disease Is this case an emergency?: No
[2023-02-25] MEDS ORDERED: VANCOMYCIN INJ 1 GM, VANCOMYCIN INJ 500 MG in SODIUM CHLORIDE 0.9% 500 ML IV ONE (10:00)
[2023-02-25] MEDS ORDERED: VANCOMYCIN 1 GM VIAL ONE ×2 (10:25→13:53)
[2023-02-25] MEDS ORDERED: BUPIVACAINE 0.25% PF 30 ML VIAL ONE (10:25)
[2023-02-25] MEDS ORDERED: MIDAZOLAM 2 MG/2 ML VIAL ONE (11:02)
[2023-02-25] MEDS ORDERED: fentaNYL 100 MCG/2 ML VIAL ONE ×3 (11:02→15:28)
--- NOTE | 2023-02-25 11:02 | XRAY Report ---
PROCEDURE: Chest for Line Placement INDICATIONS: picc line incertion TECHNIQUE: One view of the chest was acquired. COMPARISON: None. FINDINGS: Surgical changes and devices: None. Lungs and pleura: No pleural effusions or pneumothorax. Lungs are clear. Mediastinum: Mediastinal contours appear normal. Heart size is enlarged. Bones and chest wall: No suspicious bony lesions. Overlying soft tissues appear unremarkable. IMPRESSION: No acute cardiopulmonary process. Reviewed by: Michelle Nath MD on 02/25/2023 11:01 AM PDT Approved by: Michelle Nath MD on 02/25/2023 11:01 AM PDT Station ID: [id number]
[2023-02-25] MEDS ORDERED: PROPOFOL 500 MG/50 ML 500 MG/50 ML VIAL ONE (11:15)
[2023-02-25] MEDS ORDERED: ROCURONIUM 50 MG/5 ML VIAL ONE (11:19)
[2023-02-25] MEDS ORDERED: TRANEXAMIC ACID 1,000 MG/10 ML VIAL ONE (11:21)
[2023-02-25] MEDS ORDERED: MORPHINE 2 MG/ML CARPUJECT IVP PRN (11:52)
[2023-02-25] MEDS ORDERED: ePHEDrine 50 MG/ML VIAL IVP PRN (11:52)
[2023-02-25] MEDS ORDERED: NALOXONE 0.4 MG/ML VIAL IVP PRN (11:52)
[2023-02-25] MEDS ORDERED: ATROPINE ABBOJECT 1 MG/10 ML SYRINGE IVP PRN (11:52)
[2023-02-25] MEDS ORDERED: METOCLOPRAMIDE 10 MG/2 ML VIAL IVP PRN (11:52)
[2023-02-25] MEDS ORDERED: ONDANSETRON 4 MG/2 ML VIAL IVP PRN ×2 (11:52→15:03)
--- NOTE | 2023-02-25 11:52 | ANESTHESIA PROCEDURE NOTE ---
Anesth Central Line Template - Central Line Central Line Preparation: Consent Obtained, Unable to obtain consent, Time out completed, Ultrasound used, Sterile prep and drape Central line location: Right Basilic Central line type: PICC Single Lumen Central line catheter tip site resides: Superior vena cava (SVC) Central line aftercare: Secured (statlock), Placement confirmed (cxr), No complications, Bundle checklist complete, Pt tolerated well (tip tracker not functioning, confirmed by CXR to be SVC. trimmed at 46cm, none left exposed.)
[2023-02-25] MEDS ORDERED: LACTATED RINGERS 1,000 ML IV SCH (12:00)
[2023-02-25] MEDS ORDERED: DEXAMETHASONE 4 MG/ML VIAL ONE (12:20)
[2023-02-25] MEDS ORDERED: ONDANSETRON 4 MG/2 ML VIAL ONE (12:20)
[2023-02-25] MEDS ORDERED: ceFAZolin 1 GM VIAL ONE (14:16)
[2023-02-25] MEDS ORDERED: VANCOMYCIN 1 GM VIAL MC ONE (14:17)
[2023-02-25] MEDS ORDERED: BUPIVACAINE 0.25% PF 30 ML VIAL SUBQ ONE ×2 (14:19)
[2023-02-25] MEDS ORDERED: SUGAMMADEX 200 MG/2 ML VIAL IVP ONE (14:27)
--- NOTE | 2023-02-25 14:43 | OPERATIVE REPORT ---
Operative Report - General Admit Date: 02/25/23 Procedure Date: 02/25/23 Planned Procedure: Debridement of left hip arthroplasty, antibiotics, implant retention, modular exchange of femoral head and polyethylene acetabular liner, multiple cultures and irrigation Pre-Op Diagnosis: Drainage, left hip incision following total hip arthroplasty with negative Procedure Performed: Same as planned procedure with modular exchange of Medrano Nephew 36 mm, plus 0 Oxinium femoral head and neutral acetabular polyethylene liner with the exact same size as used at the initial operation. Post Op Diagnosis: Same as preoperative diagnosis - Procedure Note Primary Surgeon: Hiram Munoz MD Secondary Surgeon: Ashely Lucero PAC Anesthesia Provider: Júnior Rodriguez CRNA Anesthesia Technique: General ET tube, Regional block Estimated Blood Loss (mL): 250 Drain/Tube Type: Hemovac Indications: The indications for the surgery have been outlined clearly in the preoperative history and physical. In brief, this is a relatively healthy 67-year-old gentleman who underwent a left total hip arthroplasty approximately 2 months ago. Because of persistent drainage she was brought to the OR about 2 weeks following the initial surgery where he was thought to have a hematoma, intact fascia and 2 negative surgical cultures. His C-reactive protein and erythrocyte sedimentation rate were nearly normal at that time. A CT scan was obtained later because the drainage persisted from the distal thigh of the left hip. This CT scan suggested a hematoma. I obtained 2 additional cultures from the small opening in the skin, distal third of his incision in the clinic and both of these cultures were negative. His C-reactive protein and erythrocyte sedimentation rate on last check were normal. He persists to have a se rosanguineous drainage from the distal third of the incision. His exam does not show any sign of fluctuance, minimal tenderness over the area of drainage. previously there was ecchymosis in the area of drainage. The ecchymosis has resolved. His hip range of motion is stable and pain-free and he has no symptoms of instability to his left hip he has not had any fever or chills. He has not been on any antibiotics that would make it difficult to obtain positive cultureHis x-rays do not show any abnormality to the left hip arthroplasty Findings: There was a relatively large hematoma right in the area of skin drainage. This consisted of a large amount of clotted blood with fluid surrounding the clotted blood. The clotted blood was sent to the lab for culture as well as fluid swab surrounding hematoma. There was a break in the fascia domenic at the level of the drainage. The gluteus medius repair and hip capsule were completely intact. The hip was very stable and difficult to dislocate until takedown of a part of the capsule and gluteus medius. There is no sign of infection within the hip joint capsule. There is no membranous or fibrinous tissue within the hip capsule and the vascularity surrounding the hip joint was good. Multiple specimens of capsule were obtained and sent to the lab for tissue culture in addition to the hematoma which was submitted as a tissue culture. At least 5 cultures were obtained. The femoral head and acetabular liner appeared normal. The acetabular cup and femoral component were both stable; no sign of any loosening Complications: None - Other Other Information/Narrative: The patient was brought to the operating room. After satisfactory anesthesia was achieved, he was placed in the lateral decubitus position with the left hip facing superiorly. He was secured in the lateral decubitus position with pegboard, 2 pegs anteriorly and 1 posteriorly. The left hip and left lower extremity were prepped and draped in a sterile manner in the usual fashion. The incision was intact no sign of leakage during the prep. A timeout procedure was performed by the entire operating room team and all were in agreement. The incision was made through the previous lateral hip incision, left side. After entering the skin distally, the large hematoma was encountered with a fascial rent. A large amount of clotted blood or hematoma was removed and placed in a sterile container for tissue culture. Additional fluid swabs were obtained in the same area. The fascia was then continued to be opened from distal to proximal. The gluteus medius was intact as well as the hip capsule. There was a fingertip opening to the femoral head which had been present during my initial closure. The gluteus medius was incised over the anterior third and retracted. The anterior hip capsule was excised And multiple tissue specimens from the hip joint capsule were sent for tissue culture. The femoral head was dislocated. The head was disimpacted from the femoral trunnion with a bone tamp. The acetabular liner was removed with a tool to remove the liner and this was placed in the superior notch of the acetabulum. There was no abnormality to either the femoral head or acetabular liner. Both components, femoral and acetabular were stable to push pull. The operative side was then cleansed with multiple antiseptic agents beginning with Betadine, Hibiclens and hydrogen peroxide. A sterile toothbrush was used to scrub the trunnion and acetabular shell. At least 9 L of pulsatile lavage was utilized. The surgeon and team remove their sterile gowns, reprepped and regowned with new sterile gloves before inserting the new acetabular liner and new Oxinium femoral head. The hip was reduced and found to be stable but less stable than prior to excision of hip capsule. The gluteus medius and capsular tissue was closed with #1 strata fix suture. I placed 1 g of vancomycin within the hip joint. Part of the capsule was closed with #1 suture taken through drill holes in the trochanter. The fascia domenic was closed with #1 strata fix and a gram of vancomycin had been placed before closure of the fascia domenic. A large Hemovac drain was inserted within the fascia domenic as well. The subcutaneous tissue was closed with 2 0 strata fix and 3-0 subcuticular Monocryl suture, Dermabond and Mepilex dressing. The patient received Ancef and vancomycin before the procedure and an additional 1 g of Ancef after cultures had been obtained at the end of the procedureHe received Tranxemic acid as well during the procedureA physician dental assistant instructor was medically necessary to help with prepping and draping, positioning, protection of vital structures, assistance during the procedure including wound closure, dressing and/or splinting.
[2023-02-25] MEDS ORDERED: LACTATED RINGERS 800 ML IV ONE ×2 (15:02)
[2023-02-25] MEDS ORDERED: SODIUM CHLORIDE FLUSH 0.9% 10 ML SYRINGE IVP PRN (15:03)
[2023-02-25] MEDS ORDERED: oxyCODONE 5 MG TABLET PO PRN (15:03)
[2023-02-25] MEDS ORDERED: traMADol 50 MG TABLET PO PRN (15:03)
[2023-02-25] MEDS ORDERED: fentaNYL 250 MCG/5 ML VIAL IVP PRN (15:03)
[2023-02-25] MEDS: HYDROmorphone 0.5 MG/0.5 ML SYRINGE IVP PRN ×3 (15:20→15:55)
[2023-02-25] MEDS: fentaNYL 100 MCG/2 ML VIAL IVP PRN ×4 (15:25→16:05)
[2023-02-25] MEDS ORDERED: HYDROmorphone 0.5 MG/0.5 ML SYRINGE ONE ×2 (15:29→16:01)
--- NOTE | 2023-02-25 15:56 | ANESTHESIA POST OP EVALUATION ---
Anesthesia Post Eval - Post Anesthesia Eval Vitals: Last Vital Signs Temp 36.3 C L 02/25/23 15:02 Pulse 77 02/25/23 15:02 Resp 13 02/25/23 15:02 BP 117/65 02/25/23 15:02 Pulse Ox 100 02/25/23 15:02 O2 Flow Rate CV Function Including HR & BP: Stable Pain Control: Additional Therapies Ordered Nausea & Vomiting: Addtional Therapies Ordered Mental Status: Baseline Respiratory Status: Airway Patent Hydration Status: Satisfactory Anesthesia Complications: None
[2023-02-25] MEDS: ACETAMINOPHEN 500 MG TABLET PO SCH ×2 (16:59→21:34)
[2023-02-25] MEDS: NS W/20 MEQ KCL 1,000 ML IV SCH (16:59)
[2023-02-25] MEDS: ceFAZolin (2G) 2 GM in SODIUM CHLORIDE 0.9% MINIBAG 100 ML IV SCH ×2 (16:59→23:52)
[2023-02-25] MEDS: SODIUM CHLORIDE FLUSH 0.9% 10 ML SYRINGE IVP SCH ×2 (17:00→23:39)
--- NOTE | 2023-02-25 17:54 | PHARMACY PROGRESS NOTE ---
- Best Possible Medication History Admit Date and Time: 02/25/23 0855 Processed by: Pharmacy Medication History completed: Yes Patient Interview: Pt unable to participate Secondary Source(s): Spouse/Significant other (FRANDY SAUL COMPLETED [employer] USING IN), Physician records, Insurance records (FRANDY SAUL, COMPLE[employer]ED [employer] UTILIZING INTERVIEW WITH [employer], INSURANCE RECORDS, AND PCP RECORDS. PT TAKES BALANCE OF NATURE FRUITS AND VEG SUPPLEMENTS AT HOME, STARTING 4-5 MONTHS AGO.) As the person ultimately responsible for medication therapy, providers are able to order a medication from an existing home medication list in [facility] via the "Reconcile Routine" prior to Confirmation of that medication by network support administrator. Such practice is discouraged except when the physician, in their clinical judgment, deems that a medical need exists for a medication without regard to previous use.
--- NOTE | 2023-02-25 21:18 | XRAY Report ---
PROCEDURE: Pelvis 1 View INDICATIONS: post operative imaging TECHNIQUE: 1 view(s) of the pelvis acquired. COMPARISON: CT pelvis, 01/21/2023. X-ray pelvis, 12/31/2022. X-ray left hip, 02/11/2023. X-ray hips bilat eral, 10/23/2022. FINDINGS: Bones: No fractures or dislocations. No suspicious bony lesions. Bilateral total hip arthroplasties . Prosthesis are in anatomic alignment. Soft tissues: Visualized bowel gas pattern is normal. No suspicious soft tissue calcifications. The re is a surgical drain in the left side. IMPRESSION: 1. Probable postsurgical changes with bilateral total hip arthroplasties. Reviewed by: Lizzy Sesay MD on 02/25/2023 9:16 PM PDT Approved by: Lizzy Sesay MD on 02/25/2023 9:16 PM PDT Station ID: [id number]
[2023-02-25] MEDS: ASPIRIN EC 81 MG TABLET PO SCH (21:28)
[2023-02-25] MEDS: CELECOXIB 100 MG CAPSULE PO SCH (21:29)
[2023-02-25] MEDS: ethyl alcohoL 62% SWAB AMPULE NAS SCH (21:33)
[2023-02-25] MEDS: VANCOMYCIN INJ 1.5 GM in SODIUM CHLORIDE 0.9% 500 ML IV SCH (21:34)
[2023-02-26] MEDS: ACETAMINOPHEN 500 MG TABLET PO SCH ×4 (03:40→21:12)
[2023-02-26 06:00] LABS: BASOPHILS % (AUTO) 0.2 %; HCT - HEMATOCRIT 32.5 % (42.0-52.0); HGB - HEMOGLOBIN 10.3 g/dL (14.0-18.0); LYMPHOCYTES # (AUTO) 1.3 10^3/uL (1.5-3.5); LYMPHOCYTES % (AUTO) 10.8 %; MEAN CORPUSCULAR HEMOGLOBIN 30.8 pg (27.0-31.0); MEAN CORPUSCULAR HGB CONC 31.7 g/dL (32.0-36.0); MEAN CORPUSCULAR VOLUME 97.3 fL (80.0-94.0); MEAN PLATELET VOLUME 9.2 fL (7.4-11.4); MONOCYTES # (AUTO) 0.8 10^3/uL (0.0-1.0); MONOCYTES % (AUTO) 6.7 %; NEUTROPHILS # (AUTO) 9.6 10^3/uL (1.5-6.6); NEUTROPHILS % (AUTO) 81.9 %; PLT - PLATELET COUNT 233 10^3/uL (130-450); RED BLOOD COUNT 3.34 10^6/uL (4.70-6.10); RED CELL DISTRIBUTION WIDTH 12.6 % (12.0-15.0); WHITE BLOOD COUNT 11.7 x10^3/uL (4.8-10.8)
[2023-02-26] MEDS ORDERED: dexAMETHasone 4 MG TABLET PO ONE (07:00)
--- NOTE | 2023-02-26 07:43 | PROVIDER PROGRESS NOTE ---
Subjective - General Admit Date: 02/25/23 Procedure Date: 02/25/23 Post Op Days: 1 Procedure Performed: DIRA procedure of left hip arthroplasty - Review of Systems Drain Type: Hemovac Drain Output Description: Sanguinous discharge - Other Other Information/Narrative: Alert, semi recumbent in bed He denies chest pain, dyspnea, nausea and emesis He has not yet been seen by physical therapy or occupational therapy. Pain is controlled with oral regimen He did not eat dinner last night due to nausea however is looking forward to breakfast today He reports infusion nurse is to visit hospital in the next 2 days Objective - Patient Data Reviewed Vital Signs: Yes Vital Signs: Vital Signs x48h Temp Pulse Resp BP Pulse Ox 02/26/23 04:30 37.0 C 89 16 125/73 99 02/26/23 00:00 37.2 C 92 16 136/65 H 98 Weight: Weight 02/24/23 02/25/23 02/26/23 23:59 23:59 23:59 Weight (kg) 100.24 kg Intake & Output: Intake and Output Totals x24h 02/24/23 02/25/23 02/26/23 23:59 23:59 23:59 Intake Total 1868.667 900 Output Total 795 1580 Balance 1073.667 -680 - Lab Results Lab Results: 02/26/23 05:50 Other Lab Results: Lab Results x24hrs 02/26/23 02/25/23 Range/Units 05:50 11:02 WBC 11.7 H (4.8-10.8) x10^3/uL RBC 3.34 L (4.70-6.10) 10^6/uL Hgb 10.3 L (14.0-18.0) g/dL Hct 32.5 L (42.0-52.0) % MCV 97.3 H (80.0-94.0) fL MCH 30.8 (27.0-31.0) pg MCHC 31.7 L (32.0-36.0) g/dL RDW 12.6 (12.0-15.0) % Plt Count 233 (130-450) 10^3/uL MPV 9.2 (7.4-11.4) fL Neut # (Auto) 9.6 H (1.5-6.6) 10^3/uL Lymph # (Auto) 1.3 L (1.5-3.5) 10^3/uL [place] # (Auto) 0.8 (0.0-1.0) 10^3/uL Eos # (Auto) 0.0 (0.0-0.7) 10^3/uL Baso # (Auto) 0.0 (0.0-0.1) 10^3/uL Absolute Nucleated RBC 0.00 x10^3/uL Nucleated RBC % 0.0 /100WBC POC Whole Bld Glucose 114 H (70 - 100) mg/dL - Imaging Results Radiology Imaging: positive: Final report received - Current Medications Current Medications: Current Medications Generic Name Dose Route Start Last Admin Trade Name Freq PRN Reason Stop Dose Admin Acetaminophen 1,000 mg 02/25/23 16:00 02/26/23 03:40 Acetaminophen 500 Mg Tablet PO 1,000 mg Q6H DARLYN Administration Alcohol 1 amp 02/25/23 21:00 02/25/23 21:33 Ethyl Alcohol 62% Swab Ampule JUSTIN 1 amp BID DARLYN Administration Aspirin 81 mg 02/25/23 21:00 02/25/23 21:28 Aspirin Ec 81 Mg Tablet PO 81 mg BID DARLYN Administration Celecoxib 200 mg 02/25/23 21:00 02/25/23 21:29 Celecoxib 100 Mg Capsule PO 200 mg BID DARLYN Administration Potassium Chloride/Sodium Chloride 1,000 mls @ 100 mls/hr 02/25/23 16:00 02/26/23 00:54 Normal Saline 0.9% W/20 Meq Kcl IV 100 mls/hr .Q10H DARLYN Infusion Vancomycin HCl 1.5 gm/ Sodium 500 mls @ 250 mls/hr 02/25/23 16:00 02/25/23 23:52 Chloride IV Infused Q12H DARLYN Infusion Oxycodone HCl 5 mg 02/25/23 15:03 02/26/23 05:31 Oxycodone 5 Mg Tablet PO 5 mg Q6HR PRN Administration Severe Breakthrough pain(8-10) Sodium Chloride 10 ml 02/25/23 17:00 02/25/23 23:39 Sodium Chloride Flush 0.9% 10 Ml Syringe IVP Not Given 0100,0900,1700 [facility] - Physical Exam Comments/Other: well-developed, well-nourished, 67-year-old male, no acute distress Dressing is dry and intact without drainage. Hemovac in place with sanguinous discharge Neurovascular intact to left lower extremity in the femoral and sciatic nerve distributions. Alert, oriented and pleasant ABX Reporting Has patient been on IV antibiotics over the past 48 hours?: Yes Impression/Plan - Problem List Problem List: 67-year-old male with a past medical history of retinal artery branch occlusion, GERD and hypertension is postoperative day 1 from left hip DAIR procedure secondary to total hip arthroplasty. He is recovering well with adequate pain control and increasing appetite. He is awaiting physical therapy evaluation today. Plan is for discharge home in the upcoming days. Plan: - DVT prophylaxis with 81 mg of aspirin twice daily for 6 weeks, addition of SCDs in hospital - Physical and occupational therapy evaluation today and assessment for discharge home in the upcoming days - Pain control with scheduled tylenol, Celebrex, tramadol scheduled and oxycodone and IV fentanyl as needed. - Weight bearing as tolerated with front wheeled walker at all times - Follow up with orthopedic clinic on Thursday03/02/23 - Mepilex dressing to remain in place until follow up. Orthopedics to change dressing if saturated. - Hemovac management per orthopedics - Bowel regimen while in hospital - Normal diet, IV fluids to be discontinued when tolerating oral diet without nausea and emesis - IV Ancef 2 grams every 8 hours to continue out patient - Continue IV 1.5 grams vancomycin every 12 hours to continue out patient - Vancomycin trough ordered for Thursday and Thursday
[2023-02-26] MEDS: NS W/20 MEQ KCL 1,000 ML IV SCH ×2 (08:25→17:01)
[2023-02-26] MEDS: ASPIRIN EC 81 MG TABLET PO SCH ×2 (08:26→21:13)
[2023-02-26] MEDS: PANTOPRAZOLE 40 MG TABLET PO SCH (08:26)
[2023-02-26] MEDS: ethyl alcohoL 62% SWAB AMPULE NAS SCH ×2 (08:26→21:11)
[2023-02-26] MEDS: CELECOXIB 100 MG CAPSULE PO SCH ×2 (08:26→21:12)
[2023-02-26] MEDS: SODIUM CHLORIDE FLUSH 0.9% 10 ML SYRINGE IVP SCH ×2 (08:27→17:57)
[2023-02-26] MEDS ORDERED: METOPROLOL SUCCINATE 25 MG TABLET PO SCH (09:00)
[2023-02-26] MEDS: VANCOMYCIN INJ 1.5 GM in SODIUM CHLORIDE 0.9% 500 ML IV SCH ×2 (10:36→21:52)
[2023-02-26] MEDS: traMADol 50 MG TABLET PO SCH ×2 (11:56→17:57)
[2023-02-26] MEDS: ceFAZolin (2G) 2 GM in SODIUM CHLORIDE 0.9% MINIBAG 100 ML IV SCH ×2 (14:13→21:13)
[2023-02-26] MEDS ORDERED: ATORVASTATIN 40 MG TABLET PO SCH (21:00)
[2023-02-26] MEDS: DOCUSATE SODIUM 100 MG CAPSULE PO PRN (21:13)
[2023-02-27] MEDS: traMADol 50 MG TABLET PO SCH ×3 (00:02→13:09)
[2023-02-27] MEDS: SODIUM CHLORIDE FLUSH 0.9% 10 ML SYRINGE IVP SCH ×2 (00:02→08:54)
[2023-02-27] MEDS: ceFAZolin (2G) 2 GM in SODIUM CHLORIDE 0.9% MINIBAG 100 ML IV SCH ×2 (04:18→13:09)
[2023-02-27] MEDS: ACETAMINOPHEN 500 MG TABLET PO SCH ×3 (04:18→15:46)
[2023-02-27] MEDS: PANTOPRAZOLE 40 MG TABLET PO SCH (05:37)
--- NOTE | 2023-02-27 08:30 | Discharge Plan ---
Discharge Plan Problem Reviewed?: Yes Disposition: Home, Self Care Condition: Stable Diet: Regular Activity Restrictions: Wt Bearing as Tolerated (with front wheeled walker to left lower extremity) Shower Restrictions: No (Dressing to remain in place) Driving Restrictions: Yes (No driving) Assistance Devices: Walker Weight Bearing: Other (As tolerated) Instruction Topics: PICC Care Dc, PICC Line Flush Home Health Concerns: You were brought to the hospital for an elective debridement and exchange of components for your left hip on 02/25/23 due to concerns for infection following a left total hip arthroplasty. Plan of Treatment: You underwent a DAIR procedure of your left hip on 02/25/23 which involved debridement, irrigation and implant retention with exchange of the femoral head and cup liner. There were no known complications during your surgery. Cultures were taken to assess for infection which are still pending. You had a PICC line placed for IV antibiotics to be given in the out patient setting. You were given pain medications to help with your pain post operatively and all of your home medications were given to you in the hospital. You also received two different IV antibiotics vancomycin and ancef which will continue after you go home. You also had physical therapy and occupational therapy assessments. Care Goals: Return to independent ambulation as per baseline with improvement in symptoms and stabilization. Your pain will be controlled with acetaminophen, ibuprofen, tramadol and oxycodone as needed which is to be given according to the pain medication schedule provided in the Orthopedic clinic. These were already prescribed to you. 975 mg of acetaminophen (3 over the counter pills of 325 mg) every 8 hours 600 mg of ibuprofen (3 pills of 200 mg) every 6 hours 50 mg of tramadol every 6 hours as needed (1 tablet) 5 mg oxycodone every 6 hours as needed (1 tablet) Take aspirin 81 mg twice daily for 6 weeks to prevent blood clots. Pleas take this regardless of pain. Resume all of your normal home medications You have a dressing in place which will remain in place until your office visit on Thursday. You can remove the Tegaderm dressing with gauze 48 hours after discharge. If you notice new or worsening symptoms please call your primary care provider or the orthopedic office at [phone]. Examples of these symptoms include fever, chills, a sharp increase in pain, redness or drainage from the incision. You can eat a normal diet. Pleas take laxatives and probiotics as needed. You are weight bearing as tolerated with a front wheeled walker to the left lower extremity Assessment: I discussed this with the patient who verbalized understanding of the treatment in the hospital and necessary follow up. Written instructions were provided as a reminder. Additional Instructions or Follow Up instructions: Follow up with [facility] on Thursday Mepilex dressing (long and silver) to remain in place until follow up. The small white guaze dressing can be removed on Thursday if desired. You can shower with the Mepilex dressing in place Infusion services will help coordinate your post operative IV antibiotics for vancomycin and ancef which will continue for likely 6 weeks post operatively at the direction of Dr. Munoz VANCOMYCIN WILL BE INFUSED EVERY 12 HOURS ANCEF WILL BE INFUSED EVERY 8 HOURS BLOOD DRAWS AND LABS WILL BE DRAWN ONCE PER WEEK DRESSING CHANGES OF THE PICC LINE WILL BE DONE BY [facility] Follow the pain medication schedule provided preoperatively for acetaminophen, i buprofen, oxycodone and tramadol which were also provided above Take aspirin 81 mg twice daily for 6 weeks post operatively to prevent blood clots Use a front wheeled walker at all times when ambulating. You can place as much weight as feels comfortable on the left leg Follow-Up Care: Outpatient Rehab - PT, Home Health - RN No Smoking: If you smoke, Please STOP! Call for help. Follow-up with: Hiram Munoz MD [Provider Admit Priv/Credential] - Olivia Hale ARNP [Primary Care Provider] -
[2023-02-27] MEDS: ethyl alcohoL 62% SWAB AMPULE NAS SCH (08:51)
[2023-02-27] MEDS: DOCUSATE SODIUM 100 MG CAPSULE PO PRN (08:52)
[2023-02-27] MEDS: ASPIRIN EC 81 MG TABLET PO SCH (08:53)
[2023-02-27] MEDS: CELECOXIB 100 MG CAPSULE PO SCH (08:53)
--- NOTE | 2023-02-27 08:53 | DISCHARGE SUMMARY ---
"Discharge Summary Admit Date: 02/25/23 Discharge Date: 02/27/23 Discharging Provider: Ashely Martínez PA-C Primary Care Provider: MELL Hale Code Status: Attempt Resuscitation Condition at Discharge: Stable Discharge Disposition: 01 Home, Self Care - DIAGNOSES Admission Diagnoses: Complication of left hip total arthroplasty, concern for infection GERD Hypertension Discharge Diagnoses with Status of Each Condition: Complication of left hip total arthroplasty, concern for infection - Stable on IV antibiotics after DAIR procedure. 5 cultures are pending. GERD - Stable on home pantoprazole Hypertension - stable on home metoprolol - HPI History of Present Illness: 67 year old male presented to [facility] for elective DAIR procedure for left total hip arthroplasty due to concern for infection on 02/25/23. This was a planned admission for IV antibiotics due to concern for infection. - CONSULTS | PROCEDURES Procedures: DAIR procedure with Dr Munoz on 02/25/23 - no complications PICC line placement with anesthesia on 02/25/23 - successful, no complications Hemovac drain removed on 02/27/23 - no bleeding on removal, secured with tegaderm CBC on post operative day one showed a hemoglobin of 10.3 Vancomycin trough from 02/27/23 was 14.4 - HOSPITAL COURSE Hospital Course: On 02/25/23 Nikita underwent a successful DAIR procedure without complication where 5 wound cultures were obtained. Results are pending at time of discharge. On post operative day 0 he received IV vancomycin and Ancef and pain was controlled with acetaminophen, Celebrex, tramadol and oxycodone as needed. Discharge planning was coordinated with [facility] to continue with planned IV Ancef every 8 hours and IV Vancomycin every 12 hours to be completed at home for 6 weeks post operatively, or until antibiotics were narrowed pending culture results. On post operative day 1 and 2 pain was well controlled and he successfully worked with physical therapy. On post operative day 2, the patient and his partner were trained on home IV infusion process by a nurse from [employer]. All questions were answered and out-patient IV antibiotic plan was coordinated. The patient was medically stable for discharge on post operative day 2 and was discharged home with services for IV antibiotics coordinated through [facility]. At home, he was instructed to resume all home medications with the addition of aspirin 81 mg twice daily for DVT prophylaxis as well as acetaminophen 975 mg every 8 hours, ibuprofen 600 mg every 6 hours, tramadol 50 mg every 6 hours and oxycodone every 6 hours as needed for pain control. - ALLERGIES Allergies/Adverse Reactions: Allergies Allergy/AdvReac Type Severity Reaction Status Date / Time No Known Drug Allergies Allergy Verified 02/25/23 11:05 - MEDICATIONS Home Medications: Ambulatory Orders Medication Instructions Recorded Confirmed Atorvastatin Calcium [Lipitor] 80 mg PO QPM 12/22/22 02/25/23 Metoprolol Succinate [Toprol Xl] 50 mg PO DAILY 12/22/22 02/25/23 Pantoprazole [Protonix] 40 mg PO DAILY 12/22/22 02/25/23 Aspirin EC [Ecotrin] 81 mg PO BID tab 02/27/23 Home Medications Other | Comments: Resume home medications. No changes made during admission - PHYSICAL EXAM AT DISCHARGE Physical Exam Other/Comments: well developed, well nourished, 67 year old male, no acute distress dressing is dry and intact without drainage, no hematoma Hemovac drain pulled and drain site dressed with Tegaderm. No drainage at time of discharge Neurovascular intact to left lower extremity Ambulates well with front wheeled walker Vital signs stable - LABS Result Diagrams: 02/26/23 05:50 - DIAGNOSTIC IMAGING Diagnostic Imaging Results: Final report reviewed (expected post operative changes of left total hip arthroplasty) - FOLLOW UP Follow Up: [facility] on Thursday03/02/23 - TIME SPENT Time Spent in Discharge (Minutes): 65"
[2023-02-27] MEDS ORDERED: polyethylene glycoL 3350 17 GM PACKET PO SCH (09:00)
[2023-02-27] MEDS ORDERED: METOPROLOL SUCCINATE 25 MG TABLET PO SCH (09:00)
[2023-02-27 09:39] LABS: VANCOMYCIN,TROUGH 14.4 ug/mL
[2023-02-27] MEDS: VANCOMYCIN INJ 1.5 GM in SODIUM CHLORIDE 0.9% 500 ML IV SCH (11:07)
[2023-02-27 16:14] VITALS: BP 136/68; O2SAT 98
== END 2023-02-27 17:25 | disposition home or self-care (01) | DRG 467 ==
LOC: MS2 08:55
PROVIDERS: ADMIT Orthopaedic Surgery; ATTEND Physician Assistant Surgical
PROC: 0SPB09Z Removal of Liner from Left Hip Joint, Open Approach (ICD-10-PCS; 2023-02-25)
PROC: 0SPS0JZ Removal of Synthetic Substitute from Left Hip Joint, Femoral Surface, Open Approach (ICD-10-PCS; 2023-02-25)
PROC: 0SUE09Z Supplement Left Hip Joint, Acetabular Surface with Liner, Open Approach (ICD-10-PCS; 2023-02-25)
PROC: 02HV33Z Insertion of Infusion Device into Superior Vena Cava, Percutaneous Approach (ICD-10-PCS; 2023-02-25)
PROC: 0SRS0JA Replacement of Left Hip Joint, Femoral Surface with Synthetic Substitute, Uncemented, Open Approach (ICD-10-PCS; principal; 2023-02-25 10:00)
DX: T84.52XA Infection and inflammatory reaction due to internal left hip prosthesis, initial encounter (principal); M96.840 Postprocedural hematoma of a musculoskeletal structure following a musculoskeletal system procedure; K21.9 Gastro-esophageal reflux disease without esophagitis; I10 Essential (primary) hypertension
CPT/HCPCS: 36415; 36569; 72170; 80202; 85025; 87070; 87075; 87077; 87181; 87205; 97161; 97165; 97530; A9270; C1713; C1751; J1170; J2795; J3370; J7120; J8540

== ENCOUNTER 2023-03-02 10:16 | Outpatient (CLI) | payer MEDICARE | END 2023-03-02 10:17 | disposition home or self-care (01) | LOC: LAB.R 10:16 | PROVIDERS: ATTEND Orthopaedic Surgery | DX: T81.89XA Other complications of procedures, not elsewhere classified, initial encounter (principal) | CPT/HCPCS: 80202 ==

== ENCOUNTER 2023-03-09 10:59 | Outpatient (CLI) | payer MEDICARE | END 2023-03-09 11:00 | disposition home or self-care (01) | LOC: LAB.S 10:59 | PROVIDERS: ATTEND Orthopaedic Surgery | DX: T81.89XA Other complications of procedures, not elsewhere classified, initial encounter (principal) | CPT/HCPCS: 36415; 85651; 86140 ==

== ENCOUNTER 2023-03-23 11:01 | Outpatient (CLI) | payer MEDICARE | END 2023-03-23 11:02 | disposition home or self-care (01) | LOC: LAB.S 11:01 | PROVIDERS: ATTEND Orthopaedic Surgery | DX: T81.89XA Other complications of procedures, not elsewhere classified, initial encounter (principal) | CPT/HCPCS: 36415; 85651; 86140 ==

== ENCOUNTER 2023-05-19 10:25 | Outpatient (CLI) | payer MEDICARE ==
[2023-05-19 14:22] LABS: BASOPHILS % (AUTO) 0.3 %; EOSINOPHILS # (AUTO) 0.2 10^3/uL (0.0-0.7); EOSINOPHILS % (AUTO) 2.5 %; HCT - HEMATOCRIT 37.3 % (42.0-52.0); HGB - HEMOGLOBIN 11.6 g/dL (14.0-18.0); LYMPHOCYTES # (AUTO) 2.4 10^3/uL (1.5-3.5); LYMPHOCYTES % (AUTO) 33.3 %; MEAN CORPUSCULAR HEMOGLOBIN 27.6 pg (27.0-31.0); MEAN CORPUSCULAR HGB CONC 31.1 g/dL (32.0-36.0); MEAN CORPUSCULAR VOLUME 88.8 fL (80.0-94.0); MEAN PLATELET VOLUME 9.9 fL (7.4-11.4); MONOCYTES # (AUTO) 0.6 10^3/uL (0.0-1.0); MONOCYTES % (AUTO) 7.7 %; NEUTROPHILS # (AUTO) 4.1 10^3/uL (1.5-6.6); NEUTROPHILS % (AUTO) 55.9 %; PLT - PLATELET COUNT 327 10^3/uL (130-450); RED CELL DISTRIBUTION WIDTH 13.3 % (12.0-15.0); WHITE BLOOD COUNT 7.3 x10^3/uL (4.8-10.8)
== END 2023-05-19 10:26 | disposition home or self-care (01) ==
LOC: LAB.S 10:25
PROVIDERS: ATTEND Orthopaedic Surgery
DX: Z96.643 Presence of artificial hip joint, bilateral (principal)
CPT/HCPCS: 36415; 85025

== ENCOUNTER 2023-05-21 13:42 | Outpatient (CLI) | payer MEDICARE | END 2023-05-21 13:43 | disposition home or self-care (01) | LOC: LAB.S 13:42 | PROVIDERS: ATTEND Orthopaedic Surgery | DX: Z96.643 Presence of artificial hip joint, bilateral (principal) | CPT/HCPCS: 36415; 85651; 86140 ==

== ENCOUNTER 2023-09-28 14:02 | Outpatient (CLI) | payer MEDICARE ==
--- NOTE | 2023-09-28 15:50 | XRAY Report ---
PROCEDURE: Hips w/Pelvis 2-3V BL INDICATIONS: BILAT TOTAL HIP ARTHROPLASTY TECHNIQUE: AP view of the pelvis and AP and frog-leg lateral views of the right and left hips. COMPARISON: Pelvis radiographs 02/25/2023 FINDINGS: Bones: Postsurgical changes are seen from bilateral total hip arthroplasties. Hardware components ar e in stable positions without signs of loosening. No acute osseous fracture. No suspicious bony lesio ns. The visualized pelvic ring appears intact. Mild degenerative changes in the included spine. Soft tissues: No suspicious soft tissue calcifications. IMPRESSION: Stable appearance of bilateral total hip arthroplasties. Reviewed by: Sharan Calle MD on 09/28/2023 3:49 PM PDT Approved by: Sharan Calle MD on 09/28/2023 3:49 PM PDT Station ID: [id number]
== END 2023-09-28 14:03 | disposition home or self-care (01) ==
LOC: DI.S 14:02
PROVIDERS: ATTEND Orthopaedic Surgery
DX: Z47.1 Aftercare following joint replacement surgery (principal); Z96.643 Presence of artificial hip joint, bilateral

== ENCOUNTER 2023-10-14 09:06 | Outpatient (CLI) | payer MEDICARE ==
[2023-10-14 14:35] LABS: BASOPHILS % (AUTO) 0.2 %; EOSINOPHILS # (AUTO) 0.1 10^3/uL (0.0-0.7); EOSINOPHILS % (AUTO) 1.6 %; HCT - HEMATOCRIT 37.3 % (42.0-52.0); HGB - HEMOGLOBIN 11.8 g/dL (14.0-18.0); LYMPHOCYTES # (AUTO) 2.1 10^3/uL (1.5-3.5); LYMPHOCYTES % (AUTO) 32.7 %; MEAN CORPUSCULAR HEMOGLOBIN 28.4 pg (27.0-31.0); MEAN CORPUSCULAR HGB CONC 31.6 g/dL (32.0-36.0); MEAN CORPUSCULAR VOLUME 89.7 fL (80.0-94.0); MEAN PLATELET VOLUME 9.8 fL (7.4-11.4); MONOCYTES # (AUTO) 0.6 10^3/uL (0.0-1.0); MONOCYTES % (AUTO) 8.7 %; NEUTROPHILS # (AUTO) 3.6 10^3/uL (1.5-6.6); NEUTROPHILS % (AUTO) 56.3 %; PLT - PLATELET COUNT 311 10^3/uL (130-450); RED BLOOD COUNT 4.16 10^6/uL (4.70-6.10); RED CELL DISTRIBUTION WIDTH 14.9 % (12.0-15.0); WHITE BLOOD COUNT 6.5 x10^3/uL (4.8-10.8)
[2023-10-14 15:04] LABS: ALBUMIN 4.3 g/dL (3.2-5.5); ALBUMIN/GLOBULIN RATIO 1.7 (1.0-2.2); ALKALINE PHOSPHATASE 43 IU/L (42-121); ALT ALANINE AMINOTRANSFERASE 12 IU/L (10-60); AST ASPARTATE AMINOTRANSFERASE 17 IU/L (10-42); BILIRUBIN,TOTAL 0.6 mg/dL (0.2-1.0); BUN - BLOOD UREA NITROGEN 19 mg/dL (6-20); CALCIUM 9.4 mg/dL (8.5-10.3); CARBON DIOXIDE - CO2 28 mmol/L (21-32); CHLORIDE 107 mmol/L (101-111); CHOLESTEROL 142 mg/dL; GFR - MDRD 74 (>89); GLUCOSE 104 mg/dL (74-104); HDL CHOLESTEROL 48 mg/dL; LDL CHOLESTEROL,CALCULATED 54 mg/dL; LDL/HDL RATIO 1.1 (<3.6); POTASSIUM 4.3 mmol/L (3.5-4.5); SODIUM 140 mmol/L (135-145); TOTAL PROTEIN 6.8 g/dL (6.4-8.9); TRIGLYCERIDES 198 mg/dL (48-352); VLDL CHOLESTEROL 40 mg/dL
[2023-10-14 15:43] LABS: THYROID STIMULATING HORMONE 1.55 uIU/mL (0.34-5.60)
== END 2023-10-14 09:07 | disposition home or self-care (01) ==
LOC: LAB.S 09:06
PROVIDERS: ATTEND Registered Nurse
DX: R97.20 Elevated prostate specific antigen [PSA] (principal); Z13.228 Encounter for screening for other metabolic disorders; Z13.220 Encounter for screening for lipoid disorders; Z13.29 Encounter for screening for other suspected endocrine disorder; Z13.0 Encounter for screening for diseases of the blood and blood-forming organs and certain disorders involving the immune mechanism
CPT/HCPCS: 36415; 80053; 80061; 83721; 84153; 84443; 85025

== ENCOUNTER 2023-12-12 09:08 | Outpatient (CLI) | payer MEDICARE ==
[~2023-12-12 09:08] MED LIST changes: -ACETAMINOPHEN 500 MG TABLET PO ONE; -CELECOXIB 100 MG CAPSULE PO ONE; +GADOTERATE MEGLUMINE 10 MMOL/20 ML VIAL ONE; +GADOTERATE MEGLUMINE 5 MMOL/10 ML VIAL ONE; -ceFAZolin 2 GM VIAL ONE
[2023-12-12] MEDS: GADOTERATE MEGLUMINE 10 MMOL/20 ML VIAL IVP ONE (11:14)
--- NOTE | 2023-12-14 10:37 | MRI Report ---
PROCEDURE: Pelvis W/WO INDICATIONS: ELEVATED PSA CONTRAST: CLARISCAN 21.4 TECHNIQUE: Coronal ultra fast SE, axial T1 FSE with fat saturation, 3-plane nonbreath-hold T2 FSE. After the ad ministration of contrast, dynamic axial, delayed axial and coronal ultra fast GE or 2-D spoiled GE wi th fat saturation through the pelvis. Optional diffusion weighted imaging and ADC may be performed. COMPARISON: CT pelvis 01/21/2023. FINDINGS: Image quality: Diffusion weighted and dynamic contrast enhanced images are diagnostic. Prostate: Gland size is 5.4 x 4.9 x 4 cm; ellipsoid gland volume is 55 mL. PSA Density: 0.09 ng/mL/c c multiple BPH nodules. No focal areas of intrinsic T1 hyperintense signal to suggest hemorrhage. No suspicious focal areas of T2 hypointense signal. No focal areas of ADC hypointensity or restricted diffusion. Genitourinary system: Bladder wall thickness is normal. Distal ureters are non distended. Bowel and peritoneum: No pathologic free pelvic fluid. Inferior colon and small bowel loops are nor mal in caliber. Nodes and vessels: No pelvic or inguinal adenopathy by size criteria. Iliac vessels are normal in c aliber. Soft tissues: No inguinal hernias. Bones: Bone marrow demonstrates normal overall signal. No suspicious bony lesions. Artifact due to b ilateral hip arthroplasties. IMPRESSION: 1. Prostatomegaly. Multiple BPH nodules. 2. No PI-RADS 4 or 5 observations. 3. No adenopathy. Reviewed by: Paul Nye MD on 12/14/2023 10:36 AM PDT Approved by: Paul Nye MD on 12/14/2023 10:36 AM PDT Station ID: [id number]
== END 2023-12-12 09:09 | disposition home or self-care (01) ==
LOC: LAB 09:08
PROVIDERS: ATTEND Urology
DX: R97.20 Elevated prostate specific antigen [PSA] (principal); N40.2 Nodular prostate without lower urinary tract symptoms
CPT/HCPCS: 36415; 72197; 82565; A9575

== ENCOUNTER 2024-01-04 11:19 | Outpatient (CLI) | payer MEDICARE ==
--- NOTE | 2024-01-04 19:08 | XRAY Report ---
PROCEDURE: Hip w/Pelvis 2-3V LT INDICATIONS: LATE EFFECT OF MED AND SURG CARE COMPLICATION TECHNIQUE: AP view the pelvis and AP and lateral views of the left hip. COMPARISON: Hip radiographs 09/28/2023. MR pelvis 12/12/2023 FINDINGS: Bones: Postsurgical changes from bilateral total hip arthroplasties. Hardware components are in stabl e positions. No signs of loosening. No acute osseous abnormality. Mild degenerative changes are seen in the included spine. Soft tissues: No suspicious soft tissue calcifications. IMPRESSION: Stable appearance of bilateral total hip arthroplasties. Reviewed by: Sharan Calle MD on 01/04/2024 7:07 PM PDT Approved by: Sharan Calle MD on 01/04/2024 7:07 PM PDT Station ID: [id number]
== END 2024-01-04 11:20 | disposition home or self-care (01) ==
LOC: DI.S 11:19
PROVIDERS: ATTEND Orthopaedic Surgery
DX: Z09 Encounter for follow-up examination after completed treatment for conditions other than malignant neoplasm (principal); Z96.643 Presence of artificial hip joint, bilateral